=== PATIENT | male | born 2005 | race Caucasian/White ===

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

== ENCOUNTER 2023-07-03 23:55 | Emergency (ER) | payer OTHER, SELFPAY ==
[2023-07-04 00:03] VITALS: BP 164/111; PULSE 123; RESP 22; TEMP 36.1; O2SAT 97; BMI 19.3
--- OUTSIDE RECORDS SUMMARY | 2023-07-04 02:17 | XMS_ITS | Clinical Summary ---
Author Name Unknown Organization [facility] Address [place], [place] [address] Care Team Providers Care Track Walker Name Role Phone [facility] Primary Care Provider Unavail able Allergies Active Allergy Reactions Criticality Noted Date Comments Cats (Fur, Dander, Saliva) Other - Describe In Comment Field Low 04/04/2014 Sneezing Medications Medication Sig Dispensed Refills Start Date End Date Status FLUoxetine (PROZAC) 10 mg capsuleIndications:G eneralized anxiety disorder Take 1 capsule by mouth once daily. 90 capsule 1 01/09/2019 Active Active Problems Problem Noted Date Diagnosed Date Panic attacks 07/30/2018 Anxiety disorder 07/17/2018 Encounters Date Type Department Care Team Description 05/20/2023 4:00 PM CDT Nurse/Clinic Staff Only [facility] [address] [place] [address] Immunization/Injection (COVID-19 VACCINE); Immunization/Injection 05/20/2023 Travel from Last 3 Months Immunizations Name Administration Dates Next Due AMB Influenza, IIV4 PF (=>6 mos Flulaval,Fluzone Fluarix)(Flu Clinic Only) 02/15/2014 COVID-19 Vaccine Spikevax (M oderna 50mcg/0.5mL) 12YO+ [id number] Formula PF 05/20/2023 DTaP 06/16/2005 LEhD-AkaC-ZUK (Pediarix) 05/12/2004,03/14/2004,1 DTaP-IPV (Kinrix) 10/01/2009 HIB PRP-OMP (PedvaxHIB) 06/16/2005,03/14/2004, Influenza, IIV3 (Age 6-35 mos) 04/20/2006 Influenza, IIV3 (Age >=3 years) 04/02/2008,05/23,04/27/2007 Influenza, IIV4 02/15/2014 MMR 10/01/2009,11/24/2004 Meningococcal Vaccine (Menveo) 10/30/2016 Pneumococcal conj 7-Valent (Prevnar 7) 0 06/16/2005,05/12/2004,03/14/2004,12/17 Tdap 10/30/2016 Varicella Vaccine 10/01/2009,11/24/2004 Family History Medical History Relation Name Comments Good Health Brother Good Health Father Anxiety disorder Mother Asthma No Family History Cancer-colon No Family History Diabetes No Family History Heart Disease No Family History Hyperlipidemia No Family History Relation Name Status Comments Brother Father Mother Social History Tobacco Use Types Packs/Day Years Used Date Smoking Tobacco: Never Smokeless Tobacco: Never Tobacco Cessation:Counseling Given: Yes Comments:no exposure Alcohol Use Standard Drinks/Week Comments No 0 (1 standard drink = 0.6 oz pur e alcohol) PHQ-2 Answer Date Recorded PHQ-2 Score 3 01/09/2019 Social Connections Answer Date Recorded Frequency of Communication with Friends and Fami ly Not on file 02/20/2021 Financial Resource Strain Answer Date R ecorded Difficulty of Paying Living Expenses Not on file 02/20/2021 Difficulty of Paying Living Expenses Not on file 02/20/2021 Sex and Gender Information Value Date Recorded Sex Assigned at Not on file Gender Identity Not on file Sexual Orientation Not on file Obstetrics History Last Filed Vital Signs Vital Sign Reading Time Taken Comments Blood Pressure 139/77 03/07/2020 1:35 PM [employer] NET PROGRAMMER Pulse 93 03/07/2020 1:35 PM [employer] Temperature 36.5 ??C (97.7 ??F) 01/09/2019 2:02 PM CS T Respiratory Rate 14 04/22/2018 1:25 PM [employer] PROGRAMMER Oxygen Saturation 100% 03/07/2020 1:35 PM [employer] PROGRAMMER Inhaled Oxygen Concentration - - Weight 56.5 kg (124 lb 8 oz) 01/09/2019 2:02 PM [employer] PROGRAMMER Height 165.5 cm (5' 5.16) 01/09/2019 2:02 PM CS T Body Mass Index 20.62 01/09/2019 2:02 PM [employer] PROGRAMMER Body Mass Index Percentile 59.29% 01/09/2019 2:0 2 PM ASP NET PROGRAMMER Growth Chart: CDC (Boys, 2-2 0 Years) Plan of Treatment Health Maintenance Due Date Last Done Comments Well Child Check for age 3-20 10/07/2016 10/08/2015, 10/01/2009, 04/02/2008, Additional history exists HIV for age 15-65 11/04/2018 HPV series for age 9-26 (1 - Male 3-dose series) 11/04/2018 Depression screening for age 12+ 01/10/2020 01/09/2019, 08/16/2018, 07/28/2018, Additional history exists BMI (ht and wt on same day) for age 18+ 11/04/2021 Hepatitis C screening for age 18-79 11/04/2021 Influenza for age 9-49 10/31/2023 4, 02/15/2014, 04/02/2008, Additional history exists Tetanus booster 10/30/2026 10/30/2016 Pneumococcal series for age 6-64 Aged Out 06/16/2005, 05/12/2004, 03/14/2004, Additional history exists No longer eligible based on patient's age to complete this topic Meningococcal series for age 11-21 Aged Out 10/30/2016 No longer eligible based on patient's age to complete this topic Tdap Completed 10/30/2016 COVID-19 vaccine series Completed 05/20/2023 Care Teams Track Walker Relationship Specialty Start Date End Date Jemal Ortega PCP - General 02/20/21
[2023-07-04] MEDS: IBUPROFEN 200 MG TABLET 600 MG PO (02:22)
--- NOTE | 2023-07-04 02:24 | ED_ITS ---
HPI - General Adult General Chief complaint: Laceration/Wound Stated complaint: ETOH, head lac Time Seen by Provider: 07/04/23 01:06 Source: patient and other (Friends) Mode of arrival: ambulatory History of Present Illness HPI narrative: 17-year-old intoxicated gentleman presents to the emergency department with friends and friends parents. He was drinking alcohol at a friend's house when he tripped, falling forward and hit his head on a glass coffee table. This resulted in a laceration to the right eyebrow area. Friends heard him fall and came into the room promptly he did not seem to have a seizure or lose consciousness but seemed a little dazed of course. Parents were called, then of course that the teens had been drinking, assessed the situation and brought patient to the emergency department. Friends deny drug use or other trauma. The main friend speaking for the group is the son of 1 of our long time EMS crew members. He seems very helpful and reliable. Patient does not have a history of seizures, he does not take anticoagulants. He can not answer questions very thoroughly has been drinking but does seem reliable. Denies other musculoskeletal injuries, neurological changes, nausea or other complaints bes ides the eyebrow laceration. Is not noting visual changes or significant headache. Past medical history is benign. He actually tells me that he is planning to go study abroad in [place] and is look quite looking forward to this. He did fracture his leg 2 months ago and this has healed after surgical correction without complication. Denies long-term medications, is a smoker. ROS is otherwise negative times 12 systems besides the right eyebrow laceration Related Data Home Medications Medication Instructions Recorded Confirmed acetaminophen 325 mg tablet 650 mg PO Q6H PRN 12/03/22 03/03/23 (Tylenol) Previous Rx's Medication Instructions Recorded Knee Scooter- Adult #1 ea 10/15/22 Allergies Allergy/AdvReac Type Severity Reaction Status Date / Time No Known Drug Allergies Allergy Unverified 01/18/23 08:31 [facility] Medical History Ankle syndesmosis disruption ?S93.439A - Sprain of tibiofibular ligament of unspecified ankle, initial encounter (ICD-10) Fracture of ankle, bimalleolar, right, closed (10/12/22) ?S82.841A - Displaced bimalleolar fracture of right lower leg, initial encounter for closed fracture (ICD-10) UTI (urinary tract infection) ?N39.0 - Urinary tract infection, site not specified (ICD-10) Surgical History Status post ORIF of fracture of ankle (10/23/22) ?Z98.890 - Other specified postprocedural states (ICD-10) ?Z87.81 - Personal history of (healed) traumatic fracture (ICD-10) Family History Sister Diabetes Uncle Prostate cancer Grandfather Heart disease Social History Smoking Status: Never smoker Do you use any of these nicotine containing products: None Second hand tobacco smoke exposure: Yes (brother smokes cigars) How often do you have a drink containing alcohol: monthly or less AUDIT-C Alcohol total score: 1 Non-prescribed substance use: denies use Caffeine: Yes service: No Exam Const: Vital Signs, click to edit/add: Vital Signs - 24 hr 07/04/23 00:03 Temperature 97 F L Pulse Rate [Right Pulse Oximeter] 123 H Respiratory Rate 22 Blood Pressure [Ri ght Upper Arm] 164/111 H Pulse Oximetry 97 Oxygen Delivery Me thod Room Air Documenting provider has reviewed patient's vital signs: yes Common normals: oriented x3 and alert Orientation/consciousness: Yes awake Other: Friendly and cooperative. Answers questions well. Does seem mildly giggly and intoxicated but can answer questions well. No signs of trauma. HENMT: Common normals: moist oral mucous membranes Other: Scalp and upper forehead without signs of injury. 4 cm laceration across right eyebrow, diagonal that gapes 1.5 cm in the center and is deep all the way to the muscular layer. Oozing only slightly. Eye: Common normals: PERRL and EOMs intact bilaterally Pupil: PERRL Neck & C-Spine: Common normals: full ROM and no lymphadenopathy Cervical spine: cervical ROM normal; no cervical spine tenderness Resp: Common normals: normal respiratory effort, no use of accessory muscles and clear to auscultation bilaterally Effort & inspection: able to speak in complete sentences Auscultation: clear to auscultation bilaterally Cardio: Common normals: regular rate, regular rhythm, S1 normal heart sound, S2 normal heart sound and no murmurs Rate: regular rate Rhythm: regular rhythm Heart sounds: S1 normal and S2 normal GI: Common normals: Normal to inspection, nondistended, normoactive bowel sounds present and soft to palpation Palpation: soft Extremity: Common normals: normal to inspection, normal capillary refill and no pedal edema Neuro: Common normals: oriented x3, CN's II-XII intact bilaterally, moves all extremities and no focal motor deficits Sensorium/orientation: awake and alert Speech: speech normal Psych: Attitude: engaged Activity/motor behavior: appropriate eye contact Mood and affect: euthymic mood Insight: fair Judgement: fair Skin: Narrative: Other than laceration on the forehead, no other significant abrasions, other lacerations, bruising or signs of injury. Course Course ED Course: Head exam is otherwise benign besides laceration. Do not recommend head CT. Counseled on and wound closure, recommend stitches, rationale discussed. Verbal consent obtained. He is mentating quite well and there really is no valid reason to obtain labs, alcohol level or continued surveillance. His mother has arrived and he has a responsible adult to continue home monitoring. Procedure: Wound was cleansed with Betadine x3. Injected with 3 mL of 2% lidocaine without epinephrine with good anesthesia. Two 4-0 simple interrupted 4-0 Vicryl stitches were placed in the underlying connective tissue to reapproximate the space. Six simple interrupted 5 0 nylon sutures were then used to reapproximate skin with good hemostasis and wound closure. Well tolerated. Covered with antibiotic ointment and large Band-Aid, wound care discussed. Patient will be discharged with parents. Counseled on ibuprofen and Tylenol for headache. Will likely have some mild concussion symptoms. This was discussed. Alarm symptoms reviewed that would not be expected. He will likely have eyelid swelling may be even to the point where he will not be able to open that eye tomorrow. Lots of bruising. Top stitches will need to be removed in 6-10 days, please call the clinic for an appointment. Underlying stitches will take a couple of months to fully dissolve and may leave a lumpy appearance for the 1st few months that will eventually flatten out. He verbalizes understanding and agreement. Written instructions provided. Vital Signs Vital signs: Initial Vital Signs Temperature 97 F L 07/04/23 00:03 Temperature Source Temporal Artery Scan 07/04/23 00:03 Pulse Rate 123 H 07/04/23 00:03 Pulse Rhythm Regular 07/04/23 00:03 Pulse Strength 3+ Normal 07/04/23 00:03 Respiratory Rate 22 07/04/23 00:03 Blood Pressure 164/111 H 07/04/23 00:03 Blood Pressure Mean 128 H 07/04/23 00:03 Blood Pressure Position Sitting 07/04/23 00:03 Pulse Oximetry 97 07/04/23 00:03 Oxygen Delivery Method Room Air 07/04/23 00:03 Vital Signs Temperature 97 F L 07/04/23 00:03 Pulse Rate 123 H 07/04/23 00:03 Respiratory Rate 22 07/04/23 00:03 Blood Pressure 164/111 H 07/04/23 00:03 Pulse Oximetry 97 07/04/23 00:03 Oxygen Delivery Method Room Air 07/04/23 00:03 Temperature 97 F L 07/04/23 00:03 Pulse Rate 123 H 07/04/23 00:03 Respiratory Rate 22 07/04/23 00:03 Blood Pressure 164/111 H 07/04/23 00:03 Pulse Oximetry 97 07/04/23 00:03 Oxygen Delivery Method Room Air 07/04/23 00:03 Medications Administered Medications: Discontinued Medications Generic Name Dose Route Start Last Admin Trade Name Freq PRN Reason Stop Dose Admin Ibuprofen 600 mg 07/04/23 02:05 07/04/23 02:22 Ibuprofen 200 Mg Tablet PO 07/04/23 02:06 600 mg ONCE ONE Administration Discharge Plan Discharge Clinical Impression: Facial laceration, Mild closed head injury Patient Disposition: Home w/ Parent or Adult Condition: Improved Instructions: Laceration (DC) Additional Instructions: As we discussed, there are 2 layers of stitches along your right eyebrow. This stitches in the deeper layers will dissolve on their own and do not need to be removed. It will take about 2 months for them to dissolve completely. You may feel some lumpy areas underneath the skin that will eventually go away in time. There are six stitches placed on the skin surface that will need to be removed. Please make a follow-up appointment in the clinic to have these removed in 6-10 days. Keep the dressing that was provided on until afternoon, up to 24 hours. After that, you may gently wash the face after removing the bandage. Once dry, reapply new antibiotic ointment or plain Vaseline and cover with a bandage. Your likely to have some mild symptoms of concussion like mild headache, dizziness, fatigue. These will last probably about 48 hours. It is okay to take Tylenol 1000 mg every 6 hours and/or ibuprofen 600 mg every 6 hours as needed for mild headache and discomfort. Your eyelid will likely swell significantly and it may even be difficult for you to open the eye. This will improve in a few days. If you have seizures, loss of consciousness, persistent vomiting or other neurological changes, you should come back to the emergency department. Rest for today, light activity tomorrow resuming typical duties on Wednesday. Activity Level: Activity as Tolerated Discharge Diet: Regular Prescriptions: No Action acetaminophen [Tylenol] 325 mg tablet 650 mg PO Q6H PRN (DME) Knee Scooter- Adult Misc See Rx Instructions .Route Qty: 1 0RF Rx Instructions: As directed Follow Up/Referrals: Piper Campbell MD [Primary Care Provider] - Stand Alone Forms: Hey[employer]iki Info Instructions
== END 2023-07-04 02:22 | disposition home or self-care (01) ==
LOC: ED 07-04 02:15
PROVIDERS: Emergency Provider Family Medicine; PCP Pediatrics
DX: S01.111A Laceration without foreign body of right eyelid and periocular area, initial encounter (principal); W01.10XA Fall on same level from slipping, tripping and stumbling with subsequent striking against unspecified object, initial encounter
CPT/HCPCS: 12011; 99283; A9270

== ENCOUNTER 2023-08-01 04:55 | Emergency (ER) | payer OTHER, SELFPAY ==
[2023-08-01 05:04] VITALS: BP 155/91; PULSE 89; RESP 18; TEMP 36.7; O2SAT 98; BMI 22.0
--- NOTE | 2023-08-01 05:12 | ED.GENADULT ---
HPI - General Adult General Chief complaint: Shortness of Breath/Dyspnea Stated complaint: short of breath, light headed Time Seen by Provider: 08/01/23 05:12 History of Present Illness HPI narrative: Patient is a 17-year-old healthy gentleman who woke this morning at 2 in the morning and was unable to get back to sleep. He states that he feels like he can not catch his breath although his oxygen saturations 90%. He feels like he is nauseous and feels like he is generally on well. He is resistant to is suggestion that this is anxiety. Patient states she has never had this before. He describes no chest pain no palpitations no nausea no vomiting no fevers no chills. No other significant symptoms in the patient has been in his usual good state of health prior to his symptoms this morning. Related Data Home Medications ?Medication ?Instructions ?Recorded ?Confirmed acetaminophen 325 mg tablet 650 mg PO Q6H PRN 12/03/22 03/03/23 (Tylenol) Previous Rx's ?Medication ?Instructions ?Recorded Knee Scooter- Adult #1 ea 10/15/22 Allergies Allergy/AdvReac Type Severity Reaction Status Date / Time No Known Drug Allergies Allergy Unverified 01/18/23 08:31 Review of Systems Status of ROS: Reports: 10 or more systems reviewed and unremarkable except as noted in History and below [facility] Medical History Ankle syndesmosis disruption ?S93.439A - Sprain of tibiofibular ligament of unspecified ankle, initial encounter (ICD-10) Fracture of ankle, bimalleolar, right, closed (10/12/22) ?S82.841A - Displaced bimalleolar fracture of right lower leg, initial encounter for closed fracture (ICD-10) UTI (urinary tract infection) ?N39.0 - Urinary tract infection, site not specified (ICD-10) Surgical History Status post ORIF of fracture of ankle (10/23/22) ?Z98.890 - Other specified postprocedural states (ICD-10) ?Z87.81 - Personal history of (healed) traumatic fracture (ICD-10) Family History Sister Diabetes Uncle Prostate cancer Grandfather Heart disease Social History Smoking Status: Never smoker Do you use any of these nicotine containing products: None Second hand tobacco smoke exposure: Yes (brother smokes cigars) How often do you have a drink containing alcohol: monthly or less AUDIT-C Alcohol total score: 1 Non-prescribed substance use: denies use Caffeine: Yes service: No Exam Narrative: Exam Narrative: EXAM GENERAL: Patient appears comfortable and well. EYES: No scleral icterus. ENT: Tympanic membranes and oropharynx normal. THYROID: no thyroid nodules or thyromegaly. LYMPH: No supraclavicular or cervical lymphadenopathy. SKIN: Visible skin seen during exam normal or with benign process only. EXT: No dependent lower extremity pedal edema. HEART: Regular rate and rhythm with no murmurs, rubs, or gallops. LUNGS: Clear to auscultation bilaterally with no crackles or wheezes. ABD: Soft, non tender, non distended. PSYCH: Good eye contact, speech is not pressured. Const: Vital Signs, click to edit/add: Vital Signs - 24 hr 08/01/23 05:04 Temperature 98.1 F Pulse Rate [Pulse Oximeter] 89 Respiratory Rate 18 Blood Pressure [Ri ght Upper Arm] 155/91 H Pulse Oximetry 98 Oxygen Delivery Me thod Room Air Course Vital Signs Vital signs: Initial Vital Signs Temperature 98.1 F 08/01/23 05:04 Temperature Source Temporal Artery Scan 08/01/23 05:04 Pulse Rate 89 08/01/23 05:04 Pulse Rhythm Regular 08/01/23 05:04 Respiratory Rate 18 08/01/23 05:04 Blood Pressure 155/91 H 08/01/23 05:04 Blood Pressure Mean 112 H 08/01/23 05:04 Blood Pressure Position Sitting 08/01/23 05:04 Pulse Oximetry 98 08/01/23 05:04 Oxygen Delivery Method Room Air 08/01/23 05:04 Vital Signs Temperature 98.1 F 08/01/23 05:04 Pulse Rate 89 08/01/23 05:04 Respiratory Rate 18 08/01/23 05:04 Blood Pressure 155/91 H 08/01/23 05:04 Pulse Oximetry 98 08/01/23 05:04 Oxygen Delivery Method Room Air 08/01/23 05:04 Temperature 98.1 F 08/01/23 05:04 Pulse Rate 89 08/01/23 05:04 Respiratory Rate 18 08/01/23 05:04 Blood Pressure 155/91 H 08/01/23 05:04 Pulse Oximetry 98 08/01/23 05:04 Oxygen Delivery Method Room Air 08/01/23 05:04 Medical Decision Making MDM Narrative Medical decision making narrative: Patient presents with shortness of breath and nausea. I have carefully examined him and find no significant findings. His vital signs show a mildly elevated blood pressure consistent with anxiety. I find extremely unlikely that his symptoms are part of significant pathology given his normal exam normal vital signs and normal history. I did offer reassurance. I believe his diagnosis is anxiety. Differential diagnosis includes but not limited to pneumothorax pulmonary embolism acute myocardial infarction pneumonia carbon monoxide poisoning. Discharge Plan Discharge Clinical Impression: Mild shortness of breath Patient Disposition: Home, Self-Care Condition: Stable Additional Instructions: Monitor symptoms Rest Fluids Primary care follow-up as needed. Activity Level: No Restrictions Discharge Diet: Regular Prescriptions: No Action acetaminophen [Tylenol] 325 mg tablet 650 mg PO Q6H PRN (DME) Knee Scooter- Adult Misc See Rx Instructions .Route Qty: 1 0RF Rx Instructions: As directed Follow Up/Referrals: Piper Campbell MD [Primary Care Provider] - Stand Alone Forms: [employer] Info Instructions
--- OUTSIDE RECORDS SUMMARY | 2023-08-01 05:24 | XMS_ITS | Clinical Summary ---
Author Organization [facility] Address [place], [place] [address] Care Team Providers Care Parts Cataloger Name Role Phone [facility] Primary Care Provider Unavail able Allergies Active Allergy Reactions Criticality Noted Date Comments Cats (Fur, Dander, Saliva) Other - Describe In Comment Field Low 04/04/2014 Sneezing Medications Medication Sig Dispensed Refills Start Date End Date Status FLUoxetine (PROZAC) 10 mg capsuleIndication s:Generalized anxiety disorder Take 1 capsule by mouth once daily. 90 capsule 1 01/09/2019 07/12/2023 Discontinued (*Patient states no longer taking) Active Problems Problem Noted Date Diagnosed Date Panic attacks 07/30/2018 Anxiety disorder 07/17/2018 Resolved Problems Problem Noted Date Diagnosed Date Resolved Date Closed fracture dislocation of ankle 07/12/2023 07/12/2023 Fracture of ankle, bimalleolar, right, closed 10/13/19 23 07/12/2023 Encounters Date Type Department Care Team Description 07/12/2023 8:10 AM CDT Procedure Only [facility] [address] [place] [address] Piper Campbell MD Suture Removal (Above the right eye. Got t... 07/12/2023 Travel 05/20/2023 4:00 PM CDT Nurse/Clinic Staff Only [facility] [address] [place] [address] Immunization/Injecti on (COVID-19 VACCINE); Immunization/Injecti on 05/20/2023 Travel from Last 3 Months Immunizations Name Administration Dates Next Due AMB Influenza, IIV4 PF (=>6 mos Flulaval,Fluzone Fluarix)(Flu Clinic Only) 02/15/2014 COVID-19 Vaccine Spikevax (M oderna 50mcg/0.5mL) 12YO+ [id number] Formula PF 05/20/2023 DTaP 06/16/2005 [id number] (Pediarix) 05/12/2004,03/14/2004,1 DTaP-IPV (Kinrix) 10/01/2009 HIB PRP-OMP [...] Never Smokeless Tobacco: Never Tobacco Cessation:Counseling Given: No Comments:no exposure Alcohol Use Standard Drinks/Week Comments Yes 0 (1 standard drink = 0.6 oz pur e alcohol) Occ PHQ-2 Answer Date Recorded PHQ-2 Score 3 [...] Sign Reading Time Taken Comments Blood Pressure 134/82 07/12/2023 8:03 AM CDT Pulse 99 07/12/2023 8:03 AM CDT Temperature 36.5 ??C (97.7 ??F) 01/09/2019 2:02 PM CS T Respiratory Rate 14 04/22/2018 1:25 PM [employer] LIFT CUTTER Oxygen Saturation 97% 07/12/2023 8:03 AM CDT Inhaled Oxygen Concentration - - Weight 75.8 kg (167 lb) 07/12/2023 8:03 AM CDT Height 185.4 cm (6' 0.99) 07/12/2023 8:03 AM CD T Body Mass Index 22.04 07/12/2023 8:03 AM CDT Plan of Treatment Health Maintenance Due Date Last Done Comments Well Child Check for age 3-20 10/07/2016 10/08/2015, 10/01/2009, 04/02/2008, Additional history exists HIV for age 15-65 11/04/2018 HPV series for age 9-26 (1 - Male 3-dose series) 11/04/2018 Hepatitis C screening for age 18-79 11/04/2021 Influenza for age 9-49 10/31/2023 4, 02/15/2014, 04/02/2008, Additional history exists BMI (ht and wt on same day) for age 18+ 07/11/2024 07/12/2023 Depression screening for age 12+ 07/11/2024 07/12/2023, 01/09/2019, 08/16/2018, Additional history exists Tetanus booster 10/30/2026 10/30/2016 Pneumococcal series for age 6-64 Aged Out 06/16/2005, 05/12/2004, 03/14/2004, Additional history exists No longer eligible based on patient's age to complete this topic Meningococcal series for age 11-21 Aged Out 10/30/2016 No longer eligible based on patient's age to complete this topic Tdap Completed 10/30/2016 COVID-19 vaccine series Completed 05/20/19 24, 03/21/2021, 07/19/2020, Additional history exists Care Teams Parts Cataloger Relationship Specialty Start Date End Date Jemal Ortega PCP - General 02/20/21
[2023-08-01 05:45] VITALS: BP 135/78; PULSE 85; RESP 16; TEMP 36.8
== END 2023-08-01 05:45 | disposition home or self-care (01) ==
PROVIDERS: Emergency Provider Internal Medicine; PCP Pediatrics
DX: R06.02 Shortness of breath (principal)
CPT/HCPCS: 99282; 99283

== ENCOUNTER 2023-08-08 15:23 | Emergency (ER) | payer OTHER, SELFPAY ==
[2023-08-08 15:27] VITALS: BP 146/92; PULSE 72; RESP 20; TEMP 37.1; O2SAT 99; BMI 22.0
--- OUTSIDE RECORDS SUMMARY | 2023-08-08 15:59 | XMS_ITS | Clinical Summary ---
Author Organization [facility] Address [place], [place] [address] Care Team Providers Care Circulation Manager Name Role Phone [facility] Primary Care Provider Unavail able Allergies Active [...] Description 07/12/2023 8:10 AM CDT Procedure Only [facility] [address] [place] [address] Piper Campbell MD Suture Removal (Above the right eye. Got t... 07/12/2023 Travel 05/20/2023 4:00 PM CDT Nurse/Clinic Staff Only [facility] [address] [place] [address] Immunization/Injecti on (COVID-19 VACCINE); Immunization/Injecti on 05/20/2023 Travel from Last 3 Months Immunizations Name Administration Dates Next Due AMB Influenza, IIV4 PF (=>6 mos Flulaval,Fluzone Fluarix)(Flu Clinic Only) 02/15/2014 COVID-19 Vaccine Spikevax (M oderna 50mcg/0.5mL) 12YO+ [id number] Formula PF 05/20/2023 DTaP 06/16/2005 [id number] (Pediarix) 05/12/2004,03/14/2004,1 DTaP-IPV (Kinrix) 10/01/2009 HIB PRP-OMP [...] T Respiratory Rate 14 04/22/2018 1:25 PM COMMUNICATIONS CONSULTANT Oxygen Saturation 97% 07/12/2023 8:03 AM CDT [...] 03/21/2021, 07/19/2020, Additional history exists Care Teams Circulation Manager Relationship Specialty Start Date End Date Jemal Ortega PCP - General 02/20/21
--- NOTE | 2023-08-08 16:00 | ED.GENADULT ---
HPI - General Adult General Chief complaint: Unspecified Complaint, Adult Stated complaint: Shortness of breath Time Seen by Provider: 08/08/23 15:35 History of Present Illness HPI narrative: [age] year white male who is planning on leaving for [place] tomorrow with the [employer], reports last 6 days he has had throat tightening. He reports that intermittently half the gasp type breathing for breath. This is not consistent, it seems to be little bit better was Zyrtec. He has had a slight cough but he has had no fever, he does not feel like there is a production he does not feel a mass in his throat has not felt swollen in his throat or tongue. His dad is with him today as a history of anxiety was concerned this may be anxiety. He wants him checked out before he goes to [place] tomorrow. Patient reports that he has somewhat apprehensive but excited about going to [place]. Related Data Home Medications ?Medication ?Instructions ?Recorded ?Confirmed acetaminophen 325 mg tablet 650 mg PO Q6H PRN 12/03/22 03/03/23 (Tylenol) Previous Rx's ?Medication ?Instructions ?Recorded Knee Scooter- Adult #1 ea 10/15/22 Allergies Allergy/AdvReac Type Severity Reaction Status Date / Time No Known Drug Allergies Allergy Unverified 01/18/23 08:31 Review of Systems Status of ROS: Reports: 6 or more systems reviewed and unremarkable except as noted in History and below [facility] Medical History Ankle syndesmosis disruption ?S93.439A - Sprain of tibiofibular ligament of unspecified ankle, initial encounter (ICD-10) Fracture of ankle, bimalleolar, right, closed (10/12/22) ?S82.841A - Displaced bimalleolar fracture of right lower leg, initial encounter for closed fracture (ICD-10) UTI (urinary tract infection) ?N39.0 - Urinary tract infection, site not specified (ICD-10) Surgical History Status post ORIF of fracture of ankle (10/23/22) ?Z98.890 - Other specified postprocedural states (ICD-10) ?Z87.81 - Personal history of (healed) traumatic fracture (ICD-10) Family History Sister Diabetes Uncle Prostate cancer Grandfather Heart disease Social History Smoking Status: Never smoker Do you use any of these nicotine containing products: None Second hand tobacco smoke exposure: Yes (brother smokes cigars) How often do you have a drink containing alcohol: never AUDIT-C Alcohol total score: 0 Non-prescribed substance use: denies use Caffeine: Yes service: No Exam Narrative: Exam Narrative: Objective: Patient's vital signs are within normal limits slightly elevated blood pressures systolic and diastolic O2 sat is excellent at 99% Patient is alert oriented noncyanotic he is talking even and nonlabored sentences, he will occasionally gas been a anxious type pattern. He does not appear to be have any air hungry is no difficulty swallowing. HEENT is unremarkable facial asymmetry mouth clear throat clear no swelling in the throat or redness Neck without masses or swelling Tongue is normal Lungs are clear to auscultation Heart rhythm regular no murmur Extremities good perfusion neurologic is grossly nonfocal Const: Vital Signs, click to edit/add: Vital Signs - 24 hr 08/08/23 15:27 Temperature 98.7 F Pulse Rate [Pulse Oximeter] 72 Respiratory Rate 20 Blood Pressure [Ri ght Upper Arm] 146/92 H Pulse Oximetry 99 Oxygen Delivery Me thod Room Air Course Vital Signs Vital signs: Initial Vital Signs Temperature 98.7 F 08/08/23 15:27 Temperature Source Temporal Artery Scan 08/08/23 15:27 Pulse Rate 72 08/08/23 15:27 Pulse Rhythm Regular 08/08/23 15:27 Respiratory Rate 20 08/08/23 15:27 Blood Pressure 146/92 H 08/08/23 15:27 Blood Pressure Mean 110 H 08/08/23 15:27 Blood Pressure Position Sitting 08/08/23 15:27 Pulse Oximetry 99 08/08/23 15:27 Oxygen Delivery Method Room Air 08/08/23 15:27 Vital Signs Temperature 98.7 F 08/08/23 15:27 Pulse Rate 72 08/08/23 15:27 Respiratory Rate 20 08/08/23 15:27 Blood Pressure 146/92 H 08/08/23 15:27 Pulse Oximetry 99 08/08/23 15:27 Oxygen Delivery Method Room Air 08/08/23 15:27 Temperature 98.7 F 08/08/23 15:27 Pulse Rate 72 08/08/23 15:27 Respiratory Rate 20 08/08/23 15:27 Blood Pressure 146/92 H 08/08/23 15:27 Pulse Oximetry 99 08/08/23 15:27 Oxygen Delivery Method Room Air 08/08/23 15:27 Medications Administered Medications: Discontinued Medications Generic Name Dose Route Start Last Admin Trade Name Rolf PRN Reason Stop Dose Admin Lorazepam 1 mg 08/08/23 15:54 08/08/23 16:02 Lorazepam 1 Mg Tablet PO 08/08/23 15:55 1 mg ONCE ONE Administration Medical Decision Making MDM Narrative Medical decision making narrative: [age] year white male with intermittent gasping type breathing primarily tightness feeling in his throat. Certainly could have a globus type situation with anxiety with his upcoming trip. Discussed with he and his dad that this may be the diagnosis, also did offer that we could do viral studies, CT scan of the neck, blood work. After discussion and with mutual decision making they feel that this likely is anxiety in would prefer to try some antianxiety medication will give him a 1 mg Ativan dose now and see how that works for him over the next few hours at home, will give him Ativan 0.5 mg b.i.d. p.r.n. and will give him 10 tablets to take with him on his trip if needed. Did describe that to ultimately rule out significant issues in his throat we would need to do a CT scan and lot lab work and a viral studies. And they elected not to do this. I do suspect that this is an anxiety issue given his presentation and his intermittent heavy breathing. He does not have any shortness of breath or symptoms of a PE or other intrathoracic condition. Given their lack of interest in further studies at this point I think trial of Ativan is reasonable, and will proceed as such, if he still has symptoms tomorrow I would recommend he come back for the above-mentioned studies including lab work and CT scan of the neck. They are comfortable this plan. Discharge Plan Discharge Clinical Impression: Throat symptom, Anxiety Patient Disposition: Home w/ Parent or Adult Condition: Stable Additional Instructions: Trial of Ativan to see if would help with your throat symptoms, if you still have persistent symptoms return we can do CT scanning of the lab work. instmed script Activity Level: No Restrictions Discharge Diet: Regular Prescriptions: No Action acetaminophen [Tylenol] 325 mg tablet 650 mg PO Q6H PRN (DME) Knee Scooter- Adult Misc See Rx Instructions .Route Qty: 1 0RF Rx Instructions: As directed Follow Up/Referrals: Piper Campbell MD [Primary Care Provider] - Stand Alone Forms: [employer] Info Instructions
[2023-08-08] MEDS: LORazepam 1 MG TABLET PO (16:02)
== END 2023-08-08 16:12 | disposition home or self-care (01) ==
PROVIDERS: Emergency Provider Family Medicine; PCP Pediatrics
DX: R07.0 Pain in throat (principal); F41.9 Anxiety disorder, unspecified
CPT/HCPCS: 99283; A9270